=== PATIENT | male | born 1985 | race Caucasian/White ===

== ENCOUNTER 2020-01-10 13:28 | Outpatient (REF) | payer OTHER, SELFPAY | END 2020-01-10 13:29 | disposition home or self-care (01) | LOC: HO.LAB 13:28 | PROVIDERS: Visit Provider Internal Medicine | DX: Z20.828 Contact with and (suspected) exposure to other viral communicable diseases (principal) | CPT/HCPCS: C9803; U0003 ==

== ENCOUNTER 2024-04-11 09:43 | Outpatient (REF) | payer OTHER, SELFPAY ==
--- OUTSIDE RECORDS SUMMARY | 2024-04-11 11:12 | XMS_ITS | Encounter Summary ---
Author Organization [employer] [facility] Address [address] [place] [address] 7 [place] [address] Care Team Providers Care Farm Machinery Engine Mechanic Name Role Phone Shi Huber DATA CAPTURE CLERK Primary Care Provider [phone] Reason for Visit * Reason Onset Date Comments Med Refill 01/21/2024 Encounter Details Date Type Department Care Team ([facility] Contact Info) Description 01/21/2024 Refill [facility] [address] [place] [address] Donny Morgan MD [address] [place], [place] [phone] Social History Tobacco Use Types Packs/Day Years Used Date Smoking Tobacco: Every Day Cigarettes Alcohol Use Standard Drinks/Week Comments Defer 0 (1 standard drink = 0.6 oz pur e alcohol) Sex and Gender Information Value Date Recorded Sex Assigned at Male 12/08/2021 10:20 AM EDT Legal Sex Male 10:20 AM EDT Gender Identity Choose not to disclose 10:20 AM EDT Sexual Orientation Choose not to disclose 2021 10:20 AM EDT documented as of this encounter Plan of Treatment Upcoming Encounters Date Type Department Care Team (Late Contact Info) Description 06/13/2024 9:00 AM EDT Office Visit [facility] [address] [place], [place] [phone] Donny Morgan MD [address] [place] [address] documented as of this encounter Visit Diagnoses Not on filedocumented in this encounter Care Teams Farm Machinery Engine Mechanic Relationship Specialty Start Date End Date Shi Huber FNP [address] [place] [address] PCP - General Family Medicine 10/22/21 documented as of this encounter
--- OUTSIDE RECORDS SUMMARY | 2024-04-11 11:12 | XMS_ITS | Encounter Summary ---
Author Organization [employer] [facility] Address [address] [place] [address] 7 [place] [address] Care Team Providers Care Web Development Consultant Name Role Phone Shi Huber TAG CLERK Primary Care Provider [phone] Reason for Visit * Reason Onset Date Comments Med Refill 01/21/2024 Encounter Details Date Type Department Care Team (Late Contact Info) Description 01/21/2024 Refill [facility] [address] [place] [address] Eli Moran MD [address] [place] [address] Social History Tobacco Use Types Packs/Day Years [...] Description 06/13/2024 9:00 AM EDT Office Visit [facility] [address] [place] [address] Donny Morgan MD [address] [place] [address] documented as of this encounter Visit Diagnoses Not on filedocumented in this encounter Care Teams Web Development Consultant Relationship Specialty Start Date End Date Shi Huber FNP [address] [place] [address] PCP - General Family Medicine 10/22/21 documented as of this encounter
--- OUTSIDE RECORDS SUMMARY | 2024-04-11 11:12 | XMS_ITS | Encounter Summary ---
Author Organization [employer] Address [address] [facility] 7t [place] [address] Care Team Providers Care Principal Investigator Name Role Phone Shi Huber IUSS ANALYST Primary Care Provider [phone] Reason for Visit * Reason Onset Date Comments Appointment Request 02/29/2024 Encounter Details Date Type Department Care Team (Late Contact Info) Description 02/29/2024 Telephone [facility] [address] [place] [address] Donny Morgan MD [address] [place], [place] [phone] Appointment Request Social History Tobacco Use Types Packs/Day Years [...] AM EDT documented as of this encounter Miscellaneous Notes * Telephone Encounter - Yordy Ro - 02/29/2024 10:42 AM EST TC from pt wanting to schedule a visit 4x from today . Pt states per Dr Morgan request documented in this encounter Plan of Treatment Upcoming Encounters Date Type Department Care Team (Late Contact Info) Description 06/13/2024 9:00 AM EDT Office Visit [facility] [address] [place] [address] Donny Morgan MD [address] [place] [address] documented as of this encounter Visit Diagnoses Not on filedocumented in this encounter Care Teams Principal Investigator Relationship Specialty Start Date End Date Shi Huber FNP [address] [place] [address] PCP - General Family Medicine 10/22/21 documented as of this encounter
--- OUTSIDE RECORDS SUMMARY | 2024-04-11 11:12 | XMS_ITS | Encounter Summary ---
Author Organization [employer] Address 75 [facility] 7t [place] [address] Care Team Providers Care Linux Security Administrator Name Role Phone ClnadirShi Primary Care Provider [phone] Reason for Visit * Reason Onset Date Comments Appointment Request 03/31/2024 Pt needs marla m appt Encounter Details Date Type Department Care Team (Late Contact Info) Description 03/31/2024 Telephone [facility]S [address] [place], [place] [phone] Shi Huber FNP 505 [place] [address] Appointment Request (Pt needs derm appt) Social History Tobacco Use Types Packs/Day Years [...] encounter Miscellaneous Notes * Telephone Encounter - Tea Kenyon [place] - 03/31/2024 11:26 AM EST Called pt to schedule derm appt with dr. Morgan f/u psoriasis M ok for call center to schedule appt next available documented in this encounter Plan of Treatment Upcoming Encounters Date Type Department Care Team (Late st Contact Info) Description 06/13/2024 9:00 AM EDT Office Visit [facility] [address] [place] [address] Donny Morgan MD 505 [place] [address] documented as of this encounter Visit Diagnoses Not on filedocumented in this encounter Care Teams Linux Security Administrator Relationship Specialty Start Date End Date Shi Huber FNP [address] [place] [address] PCP - General Family Medicine 10/22/21 documented as of this encounter
--- OUTSIDE RECORDS SUMMARY | 2024-04-11 11:12 | XMS_ITS | Encounter Summary ---
Author Organization [employer] Address 75 [facility] 7t [place] [address] Care Team Providers Care Outpatient Physical Therapist Assistant Name Role Phone Shi Huber Primary Care Provider [phone] Reason for Visit * Reason Onset Date Comments Med Refill 03/27/2024 Encounter Details Date Type Department Care Team ([facility] st Contact Info) Description 03/27/2024 Refill [facility]S [address] [place], [place] [phone] Donny Morgan MD 505 [place] [address] Psoriasis of scalp; Psoriasiform dermatitis; Psoriasis Social History Tobacco Use Types Packs/Day Years Used Date Smoking Tobacco: Every Day Cigarettes Alcohol Use Standard Drinks/Week Comments Defer 0 (1 standard drink = 0.6 oz pur e alcohol) Sex and Gender Information Value Date Recorded Sex Assigned at Male 12/08/2021 10:20 AM EDT Legal Sex Male 10:20 AM EDT Gender Identity Choose not to disclose 2 10:20 AM EDT Sexual Orientation Choose not to disclose 2021 10:20 AM EDT documented as of this encounter Miscellaneous Notes * Telephone Encounter - SLOAN Lantigua - 03/28/2024 11:16 AM EST Spoke with [facility] pharmacy - they have an active prescription and refill available (refill not needed). Dianne from pharmacy said it was filled last on 02/03/24. They have no active insurance for pt at pharmacy, so recommend he brings updated insurance info. Also report that out of pocket cost with loyalty program would be approx $23. I am going to decline rx., Would you be able to let pt know and encourage him to follow up with [facility] pharmacy? Thank you! documented in this encounter Plan of Treatment Upcoming Encounters Date Type Department Care Team ([facility] st Contact Info) Description 06/13/2024 9:00 AM EDT Office Visit [facility] [address] [place] [address] Donny Morgan MD [address] [place] [address] documented as of this encounter Visit Diagnoses Diagnosis Psoriasis of scalp Psoriasiform dermatitis Other psoriasis and similar disorders Psoriasis Other psoriasis documented in this encounter Care Teams Outpatient Physical Therapist Assistant Relationship Specialty Start Date End Date Shi Huber FNP [address] [place] [address] PCP - General Family Medicine 10/22/21 documented as of this encounter
--- OUTSIDE RECORDS SUMMARY | 2024-04-11 11:13 | XMS_ITS | Encounter Summary ---
Author Organization [employer] Address [address] [facility] 7t [place] [address] Care Team Providers Care Telesales Team Leader Name Role Phone ClnadirShi Primary Care Provider [phone] Reason for Visit * Reason Onset Date Comments Appointment Request 03/31/2024 Encounter Details Date Type Department Care Team (Late Contact Info) Description 03/31/2024 Telephone [facility] [address] [place] [address] Shi Huber FNP 505 [place], [place] [phone] Appointment Request Social History Tobacco Use Types [...] encounter Miscellaneous Notes * Telephone Encounter - Oneil Sosa - 03/31/2024 9:33 AM EST Tc from pt requesting Apt for Derm with Chiarael. Contact pt at [phone] documented in this encounter Plan of Treatment Upcoming Encounters Date Type Department Care Team (Late Contact Info) Description 06/13/2024 9:00 AM EDT Office Visit [facility] [address] [place] [address] Donny Morgan MD [address] [place] [address] documented as of this encounter Visit Diagnoses Not on filedocumented in this encounter Care Teams Telesales Team Leader Relationship Specialty Start Date End Date Shi Huber FNP [address] [place] [address] PCP - General Family Medicine 10/22/21 documented as of this encounter
--- OUTSIDE RECORDS SUMMARY | 2024-04-11 11:13 | XMS_ITS | Clinical Summary ---
Author Organization [employer] Address [address] [facility] 7t [place] [address] Care Team Providers Care Wagon Driller Name Role Phone Shi Huber SLOAN Primary Care Provider [phone] Allergies No known active allergies Medications acetaminophen (Tylenol) 500 MG tablet Take 1 tablet (500 mg) by mouth every 6 (six) hours if needed for mild pain for up to 20 doses. 20 tablet 4 Active ibuprofen 600 MG tablet Take 1 tablet (600 mg) by mouth every 6 (six) hours if needed for mild pain for up to 20 doses. 20 tablet 4 Active ketoconazole (NIZOral) 2 % shampoo Apply topically 2 (two) times a week. 100 mL 11 4 Active apremilast (Otezla) 10 & 20 & 30 MG tablet therapy pack tablet therapy packIndications :Psoriasis of scalp Take 1 tablet by mouth in the morning for 28 days. Do not crush, chew, or split tablets. 28 tablet 4 Active halobetasol (UltraVATE) 0.05 % ointmentIndicat ions:Psoriasis of scalp Apply topically 2 times daily. 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 Encounters Date Type Department Care Team Description 04/05/2024 Orders Only [facility] [address] [place] [address] Donny Morgan MD Psoriasiform dermatitis (Primary Dx) 03/31/2024 Telephone [facility] [address] [place] [address] Shi Huber FNP Appointment Request (Pt needs derm appt) 03/31/[address] [address] Shi Huber FNP Appointment Request 03/30/2024 Telephone [facility] [address] [place] [address] Shi Huber FNP March03/27/2024 Refill [facility] [address] [place] [address] Donny Morgan MD Psoriasis of scalp; Psoriasiform dermatitis; Psoriasis 02/29/2024 9:30 AM EST Office Visit [facility] [address] [place] [address] Donny Morgan MD Psoriasis of scalp (Primary Dx); Psoriasiform dermatitis; Psoriasis 02/29/2024 Telephone [facility] [address] [place] [address] Donny Morgan MD Appointment 02/29/[address] [address] Donny Morgan MD Appointment Request 02/29/2024 Travel 01/28/2024 Refill [facility] [address] [place] [address] Donny Morgan MD 01/25/2024 Refill [facility] [address] [place] [address] Donny Morgan MD Psoriasis of scalp 01/21/2024 Refill [facility] [address] [place] [address] Eli Moran MD 01/21/2024 Refill [facility] [address] [place] [address] Donny Morgan MD from Last 3 Months Social History Tobacco Use Types Packs/Day Years Used Date Smoking Tobacco: Every Day Cigarettes Tobacco Cessation:Ready to Q uit: Not Asked; Counseling Given: Not Answered Alcohol Use Standard Drinks/Week Comments Defer 0 (1 standard drink = 0.6 oz pur e alcohol) Sex and Gender Information Value Date Recorded Sex Assigned at Male 12/08/2021 10:20 AM EDT Legal Sex Male 10:20 AM EDT Gender Identity Choose not to disclose 10:20 AM EDT Sexual Orientation Choose not to disclose 2021 10:20 AM EDT Last Filed Vital Signs Vital Sign Reading Time Taken Comments Blood Pressure 128/82 02/29/2024 9:42 AM EST Pulse 78 02/29/2024 9:42 AM EST Temperature 37.1 ??C (98.8 ??F) 02/29/2024 9:42 AM ES T Respiratory Rate 20 10/19/2023 9:40 AM EDT Oxygen Saturation 98% 10/19/2023 9:40 AM EDT Inhaled Oxygen Concentration - - Weight 84.4 kg (186 lb) 02/29/2024 9:42 AM EST Height 171 cm (5' 7.32 ) 02/29/2024 9:42 AM EST Body Mass Index 28.85 02/29/2024 9:42 AM EST Plan of Treatment Upcoming Encounters Date Type Department Care Team (Late st Contact Info) Description 06/13/2024 9:00 AM EDT Office Visit [facility] [address] [place] [address] Donny Morgan MD [address] [place] [address] Health Maintenance Due Date Last Done Comments Dental Oral Exam 1985 Dental Prophylaxis 1985 Dental X-Ray: Bitewings 1985 Depression Screening 1985 HIV Screening 1985 Lipid Panel 1985 SDOH Screening 1985 Alcohol/Substance Use Screening 1997 Family Planning (PISQ) 2000 Hepatitis C Screening 08/16/2003 DTaP/Tdap/Td Vaccines (1 - Tdap) 2004 Hepatitis B Vaccines (1 of 3 - 19+ 3-dose series) 2004 Pneumococcal Vaccine: Pediat rics (0 to 5 Years) and At-Risk Patients (6 to 49) Years) (1 of 2 - PCV) 2004 COVID-19 Vaccine (1 - 2023-2 5 season) 2023 Influenza Vaccine (#1) 2023 Dental X-Ray: Full Mouth 01/12/2024 01/10/2021 Tobacco Screening 02/28/2025 02/29/2024 Zoster Vaccines (1 of 2) 08/16/2035 RSV Patients and Pa tients Aged 60 years or older (1 - 1-dose 75+ series) 2060 HIB Vaccines Aged Out No longer eligi ble based on patient's age to complete this topic HPV Vaccines Aged Out No longer eligi ble based on patient's age to complete this topic Hepatitis A Vaccines Aged Out No long er eligible based on patient's age to complete this topic IPV Vaccines Aged Out No longer eligi ble based on patient's age to complete this topic Meningococcal Vaccine Aged Out No ivan tripp eligible based on patient's age to complete this topic RSV under 20 months Aged Out No longe r eligible based on patient's age to complete this topic Rotavirus Vaccines Aged Out No longer eligible based on patient's age to complete this topic Procedures Procedure Name Priority Date/Time Associated Diagnosis Comments PANORAMIC RADIOGRAPHIC IMAGE Routine 01/10/2021 12:00 AM EST from Last 3 Months or Most Recently Relevant to Health Maintenance Insurance [facility] Care Teams Wagon Driller Relationship Specialty Start Date End Date Shi Huber FNP [address] [place] [address] PCP - General Family Medicine 10/22/21
--- OUTSIDE RECORDS SUMMARY | 2024-04-11 11:13 | XMS_ITS | Encounter Summary ---
Author Organization [employer] Address [address] [facility] 7t [place] [address] Care Team Providers Care Professor In Family Studies Name Role Phone Shi Huber Primary Care Provider [phone] Reason for Visit * Reason Onset Date Comments March recall 03/30/2024 Encounter Details Date Type Department Care Team ([facility] st Contact Info) Description 03/30/2024 Telephone [facility]EDS [address] [place] [address] Shi Huber FNP [address] [place] [address] March recall Social History Tobacco Use Types Packs/Day Years [...] encounter Miscellaneous Notes * Telephone Encounter - Jakub Tolentino [place] - 03/30/2024 3:48 PM EST Telephone call to patient to schedule a recall appointment. No answer, Left voicemail to return call to clinic.. Recall letter sent. Visit type: Follow up Appointment notes: Chronic conditions Month due: March With: Cecile Please schedule appointment above if patient returns call documented in this encounter Plan of Treatment Upcoming Encounters Date Type Department Care Team (Late st Contact Info) Description 06/13/2024 9:00 AM EDT Office Visit [facility] [address] [place] [address] Donny Morgan MD [address] [place] [address] documented as of this encounter Visit Diagnoses Not on filedocumented in this encounter Care Teams Professor In Family Studies Relationship Specialty Start Date End Date Shi Huber FNP [address] [place] [address] PCP - General Family Medicine 10/22/21 documented as of this encounter
--- OUTSIDE RECORDS SUMMARY | 2024-04-11 11:13 | XMS_ITS | Encounter Summary ---
Author Organization [employer] Address [address] [facility] 7t [place] [address] Care Team Providers Care Esol Teacher Name Role Phone Shi Huber POWER PLANT INSTALLER Primary Care Provider [phone] Encounter Details Date Type Department Care Team ([facility] Contact Info) Description 04/05/2024 Orders Only [facility] [address] [place] [address] Donny Morgan MD [address] [place], [place] [phone] Psoriasiform dermatitis (Primary Dx) Social History Tobacco Use Types Packs/Day Years [...] Description 06/13/2024 9:00 AM EDT Office Visit [facility] PEDS [address] [place], [place] [phone] Donny Morgan MD [address] [place], [place] [phone] Scheduled Orders Name Type Priority Associated Diagnoses Orde r Schedule T-SPOT??.TB Lab Routine Psoriasiform dermatitis Expected: 04/05/2024 (Approximate), Expires: 04/05/2025 documented as of this encounter Visit Diagnoses Diagnosis Psoriasiform dermatitis- Primary Other psoriasis and similar disorders documented in this encounter Care Teams Esol Teacher Relationship Specialty Start Date End Date Shi Huber FNP [address] [place] [address] PCP - General Family Medicine 10/22/21 documented as of this encounter
[2024-04-14 11:49] LABS: TS Negative Control Passed; TS Panel A 0; TS Panel B 0; TS Positive Control Passed; TSpotTB Negative (Negative)
== END 2024-04-11 09:44 | disposition home or self-care (01) ==
LOC: HO.HHCL 09:43
PROVIDERS: Visit Provider Internal Medicine
DX: L30.8 Other specified dermatitis (principal)
CPT/HCPCS: 36415; 86481